=== PATIENT | female | born 2000 | race African-American/Black ===

== ENCOUNTER 2020-11-15 09:05 | Emergency (ER) | payer MEDICAID ==
[~2020-11-15] VITALS: Ht 167.6 cm; Wt 68.0 kg
[2020-11-15] MEDS ORDERED: IBUP-2028 MT (10:55)
[2020-11-15 11:01] VITALS: BP 117/78
== END 2020-11-15 11:02 | disposition home or self-care (01) ==
LOC: ER 09:05
DX: J02.9 Acute pharyngitis, unspecified (principal); B34.9 Viral infection, unspecified
CPT/HCPCS: 87070; 87430; 99283